=== PATIENT | male | born 1935 | race Caucasian/White ===

== ENCOUNTER 2025-04-07 08:41 | Day surgery (SDC) | payer MEDICARE ==
[2025-04-06 15:17] VITALS: BMI 25.1
[2025-04-07 10:14] LABS: #Basophils 0.04 10x3/uL (0.0-0.2); #Eosinophils 0.28 10x3/uL (0.0-0.5); #Monocytes 0.70 10x3/uL (0.0-1.1); #Neutrophils 5.06 10x3/uL (1.5-8.4); %Basophils 0.6 % (0.0-2.0); %Eosinophils 3.9 % (0.0-6.0); %Lymphocytes 14.4 % (18.0-47.0); %Monocytes 9.8 % (0.0-10.0); %Neutrophils 71.0 % (40.0-75.0); Hematocrit 41.5 % (38.8-50.0); Hemoglobin 14.0 g/dL (13.5-17.5); Mean Corpuscular Hemoglobin 34.2 pg (27.0-33.0); Mean Corpuscular Volume 101.5 fL (81.2-95.1); Platelet Count 141 10x3/uL (150-450); Red Blood Cell (RBC) Count 4.09 10x6/uL (4.32-5.72); White Blood Cell (WBC) Count 7.13 10x3/uL (3.5-10.5)
[2025-04-07 10:37] LABS: Anion Gap 18 mmol/L (10-20); BUN (Urea Nitrogen) 61 mg/dL (8.4-25.7); Calc. Creatinine Clearance 23 mL/min (70-130); Calcium 9.3 mg/dL (7.8-10.44); Carbon Dioxide 22 mmol/L (23-31); Chloride 105 mmol/L (98-107); Glucose 169 mg/dL (83-110); Potassium 4.8 mmol/L (3.5-5.1); Sodium 140 mmol/L (136-145)
[2025-04-07] MEDS ORDERED: Lidocaine 2% MPF 10 ML AMP (For Epidural Use) ONE ×2 (10:54→13:01)
[2025-04-07] MEDS ORDERED: Bupivacaine/Epinephrine 0.25% 30 ML VIAL ONE (10:55)
[2025-04-07] MEDS ORDERED: CEFAZOLIN 2 GM VIAL ONE (11:45)
== END 2025-04-07 14:00 | disposition home or self-care (01) ==
LOC: CSHSDC 08:41
PROVIDERS: ATTEND Surgery
DX: I50.9 Heart failure, unspecified (principal); I87.2 Venous insufficiency (chronic) (peripheral); Z79.01 Long term (current) use of anticoagulants; Z79.82 Long term (current) use of aspirin
CPT/HCPCS: 36558; 36589; 71045; 80048; 82962; 85025; C1750; C1769; J1642; 36416